=== PATIENT | female | born 1925 | race Asian ===

== ENCOUNTER 2016-08-16 20:43 | Inpatient (IN) | payer OTHER, MEDICAID ==
[~2016-08-16] VITALS: Ht 154.9 cm; Wt 53.5 kg
[~2016-08-16 20:43] MED LIST: AMLO2.5T2 PO; ESZO3TAB10 PO; HCTZ; LORA-258 PO
[2016-08-16 20:45] VITALS: BP_SYST 155
[2016-08-16] MEDS ORDERED: MORPHINE 2 MG/ML INJ. SYRINGE IVP ONE (21:45)
[2016-08-16] MEDS ORDERED: ONDANSETRON HCL 4 MG/2 ML VIAL IVP ONE (21:45)
[2016-08-16] MEDS ORDERED: NS 500 ML IV ONE (21:45)
[2016-08-16 21:46] LABS: BILIRUBIN,URINE NEGATIVE (NEGATIVE); BLOOD, URINE NEGATIVE (NEGATIVE); CLARITY/URINE CLEAR (CLEAR); COLOR,URINE YELLOW (YELLOW); GLUCOSE,URINE NEGATIVE (NEGATIVE); KETONES,URINE NEGATIVE (NEGATIVE); LEUKOCYTE ESTERASE ,URINE 3+ (NEGATIVE); NITRITE, URINE POSITIVE (NEGATIVE); PH,URINE 6.5 (5.0-8.0); PROTEIN URINE NEGATIVE (NEGATIVE); UROBILINOGEN,URINE 0.2 (0.2-1.0)
[2016-08-16 22:02] LABS: BASOPHILS % (AUTO) 0.1 % (0.0-2.0); EOSINOPHILS # (AUTO) 0.1 K/uL (0.0-0.4); EOSINOPHILS % (AUTO) 0.5 % (0.0-4.0); HEMATOCRIT 41.9 % (36-48); HEMOGLOBIN 13.7 g/dL (12.0-16.0); LYMPHOCYTES % (AUTO) 9.4 % (20.5-51.5); MEAN CORPUSCULAR HEMOGLOBIN 29 pg (27-31); MEAN CORPUSCULAR HGB CONC 33 % (32-36); MEAN CORPUSCULAR VOLUME 90 fL (79.0-98.0); MONOCYTES # (AUTO) 0.3 K/uL (0.0-1.0); MONOCYTES % (AUTO) 3.1 % (1.7-9.3); NEUTROPHILS # (AUTO) 9.2 K/uL (1.8-7.7); NEUTROPHILS % (AUTO) 86.9 % (40.0-70.0); PLATELET COUNT (AUTO) 192 K/uL (130-430); RED BLOOD CELL COUNT(AUTO) 4.68 MIL/uL (4.2-6.2); RED CELL DISTRIBUTION WIDTH 12.9 % (9.0-15.0); WHITE BLOOD COUNT (AUTO) 10.6 K/uL (4.8-10.8)
[2016-08-16 22:10] LABS: ANION GAP 5 (5-15); CALCIUM 10.1 mg/dL (8.4-11.0); CHLORIDE 97 mmol/L (98-107); GLUCOSE 155 mg/dL (70-99); INR 0.9 (0.8-1.2); POTASSIUM 4.5 mmol/L (3.5-5.1); PROTHROMBIN TIME 10.2 SECS (9.5-12.5); SODIUM SERUM 132 mmol/L (136-145); UREA NITROGEN, BLOOD 21 mg/dL (8-21)
[2016-08-16 22:14] LABS: ALANINE AMINOTRANSFERASE 23 U/L (12-78); ALBUMIN 4.3 g/dL (3.4-4.8); ASPARTATE AMINOTRANSFERASE 26 U/L (10-37); LIPASE 167 U/L (73-393); TOTAL BILIRUBIN 0.4 mg/dL (0.0-1.0); TOTAL PROTEIN, SERUM 8.2 g/dL (6.4-8.3)
[2016-08-16 22:22] LABS: BACTERIA,URINE MANY /HPF (None Seen); MUCUS,URINE None Seen /LPF (None Seen); RBC,URINE 0-3 /HPF (0-3); WBC,URINE 20-50 /HPF (0-3)
[2016-08-16] MEDS ORDERED: cefTRIAXone 1 GM in D5W 50 ML IV ONE (22:45)
[2016-08-16] MEDS ORDERED: cefTRIAXone 1 GM VIAL ONE (23:02)
[2016-08-17] MEDS ORDERED: NS 500 ML IV ONE (00:15)
[2016-08-17] MEDS ORDERED: HYDR-1115 PO (00:29)
[2016-08-17] MEDS ORDERED: MONT10TA25 PO (00:32)
[2016-08-17] MEDS ORDERED: ADCIRCA PO (00:32)
[2016-08-17] MEDS ORDERED: ONDANSETRON HCL 4 MG/2 ML VIAL IVP PRN (00:45)
[2016-08-17] MEDS ORDERED: ACETAMINOPHEN 325 MG TABLET PO PRN ×2 (00:45→10:00)
[2016-08-17 01:00] VITALS: BP_SYST 132
[2016-08-17] MEDS: NACL 0.9% 1,000 ML IV SCH ×2 (01:28→22:39)
[2016-08-17 04:00] VITALS: BP_SYST 128
[2016-08-17 08:00] VITALS: BP_SYST 152
[2016-08-17 08:30] LABS: BASOPHILS % (AUTO) 0.1 % (0.0-2.0); EOSINOPHILS # (AUTO) 0.1 K/uL (0.0-0.4); HEMATOCRIT 35.4 % (36-48); HEMOGLOBIN 11.8 g/dL (12.0-16.0); LYMPHOCYTES # (AUTO) 2.6 K/uL (1.0-5.5); LYMPHOCYTES % (AUTO) 33.6 % (20.5-51.5); MEAN CORPUSCULAR HEMOGLOBIN 30 pg (27-31); MEAN CORPUSCULAR HGB CONC 33 % (32-36); MEAN CORPUSCULAR VOLUME 91 fL (79.0-98.0); MONOCYTES # (AUTO) 0.4 K/uL (0.0-1.0); MONOCYTES % (AUTO) 5.2 % (1.7-9.3); NEUTROPHILS # (AUTO) 4.6 K/uL (1.8-7.7); NEUTROPHILS % (AUTO) 60.1 % (40.0-70.0); PLATELET COUNT (AUTO) 158 K/uL (130-430); RED BLOOD CELL COUNT(AUTO) 3.91 MIL/uL (4.2-6.2); RED CELL DISTRIBUTION WIDTH 12.6 % (9.0-15.0); WHITE BLOOD COUNT (AUTO) 7.7 K/uL (4.8-10.8)
[2016-08-17 08:33] LABS: ANION GAP 6 (5-15); CALCIUM 8.7 mg/dL (8.4-11.0); CHLORIDE 103 mmol/L (98-107); CREATININE 0.76 mg/dL (0.55-1.30); GLUCOSE 104 mg/dL (70-99); POTASSIUM 4.8 mmol/L (3.5-5.1); SODIUM SERUM 139 mmol/L (136-145); UREA NITROGEN, BLOOD 14 mg/dL (8-21)
[2016-08-17] MEDS ORDERED: LEVOFLOXACIN 500 MG/D5W 100 ML IV ONE (10:00)
[2016-08-17] MEDS: cefTRIAXone 1 GM IVPB PREMIX 50 ML IV SCH (10:46)
[2016-08-17 12:18] VITALS: BP_SYST 151
[2016-08-17] MEDS ORDERED: LORazepam 1 MG TABLET PO SCH (15:00)
[2016-08-17] MEDS ORDERED: amLODIPine BESYLATE 5 MG TABLET PO ONE (15:15)
[2016-08-17] MEDS ORDERED: hydrALAZINE HCL 25 MG TABLET PO ONE (15:15)
[2016-08-17 15:30] VITALS: BP_SYST 151
[2016-08-17] MEDS ORDERED: MONTELUKAST 10 MG TABLET PO SCH (18:00)
[2016-08-17 19:45] VITALS: BP_SYST 153
[2016-08-17] MEDS: hydrALAZINE HCL 25 MG TABLET PO SCH (21:34)
[2016-08-17] MEDS: amLODIPine BESYLATE 5 MG TABLET PO SCH (21:35)
[2016-08-18] VITALS: BP_SYST 160
[2016-08-18 04:00] VITALS: BP_SYST 151
[2016-08-18 08:00] VITALS: BP_SYST 163
[2016-08-18] MEDS: hydrALAZINE HCL 25 MG TABLET PO SCH (08:12)
[2016-08-18] MEDS: amLODIPine BESYLATE 5 MG TABLET PO SCH (08:13)
[2016-08-18 10:40] VITALS: BP_SYST 147
[2016-08-18] MEDS ORDERED: CEPH250C PO (10:50)
[2016-08-18] MEDS: cefTRIAXone 1 GM IVPB PREMIX 50 ML IV SCH (11:09)
== END 2016-08-18 11:15 | disposition home or self-care (01) | DRG 690 ==
LOC: SED 20:43 → STU 08-17 00:40
PROVIDERS: ADMIT Internal Medicine; ATTEND Internal Medicine
DX: N39.0 Urinary tract infection, site not specified (principal); A08.4 Viral intestinal infection, unspecified; J45.909 Unspecified asthma, uncomplicated; I10 Essential (primary) hypertension; K21.9 Gastro-esophageal reflux disease without esophagitis; Z96.653 Presence of artificial knee joint, bilateral; I70.90 Unspecified atherosclerosis; E78.5 Hyperlipidemia, unspecified
CPT/HCPCS: 36415; 71010; 80048; 80053; 81000-TC; 83605; 83690-TC; 84484; 85025; 85610-TC; 86710; 87040-TC; 87081; 87086; 87186-TC; 93005; 93306; 96361; 96365; 96375; 99285; J0696; J1956; J2270; J2405; J7030; J7040; J7060